=== PATIENT | female | born 1940 | race Two or more races ===

== ENCOUNTER → 2019-07-09 | Outpatient (CLI) | payer OTHER | END | disposition home or self-care (01) | LOC: RAD 11:12 | PROVIDERS: ATTEND Internal Medicine Cardiovascular Disease | DX: I25.5 Ischemic cardiomyopathy (principal); Z95.5 Presence of coronary angioplasty implant and graft; R06.02 Shortness of breath; R53.81 Other malaise; I25.2 Old myocardial infarction ==

== ENCOUNTER 2020-09-21 12:37 | Outpatient (CLI) | payer OTHER | END 2020-09-21 12:41 | disposition home or self-care (01) | LOC: RAD 12:37 | PROVIDERS: ATTEND Specialist | DX: J45.998 Other asthma (principal) ==

== ENCOUNTER 2021-02-18 10:46 | Outpatient (CLI) | payer OTHER | END 2021-02-18 10:47 | disposition home or self-care (01) | LOC: NUCLEAR 10:46 | PROVIDERS: ATTEND Emergency Medicine | DX: I65.21 Occlusion and stenosis of right carotid artery (principal) ==

== ENCOUNTER → 2021-06-01 | Outpatient (CLI) | payer OTHER | END | disposition home or self-care (01) | LOC: TOM 15:14 | PROVIDERS: ATTEND Otolaryngology | DX: H92.01 Otalgia, right ear (principal); H70.11 Chronic mastoiditis, right ear ==

== ENCOUNTER 2021-07-06 09:02 | Outpatient (CLI) | payer OTHER | END 2021-07-06 09:04 | disposition home or self-care (01) | LOC: RAD 09:02 | PROVIDERS: ATTEND Otolaryngology | DX: R05.1 Acute cough (principal) ==

== ENCOUNTER 2021-12-22 13:07 | Outpatient (CLI) | payer OTHER | END 2021-12-22 13:55 | disposition home or self-care (01) | LOC: RAD 13:07 | PROVIDERS: ATTEND Surgery Surgery of the Hand | DX: M19.031 Primary osteoarthritis, right wrist (principal); M19.032 Primary osteoarthritis, left wrist; M19.049 Primary osteoarthritis, unspecified hand ==